=== PATIENT | male | born 1945 | race Caucasian/White ===

== ENCOUNTER → 2023-04-29 13:01 | Outpatient (REF) | payer OTHER, SELFPAY | LOC: MRI 13:01 | PROVIDERS: ATTENDING PHYSICIAN Psychiatry & Neurology Neurology; FAMILY PHYSICIAN Family Medicine; REFERRING PHYSICIAN Radiology Diagnostic Radiology | DX: R51.9 Headache, unspecified (principal); Z95.0 Presence of cardiac pacemaker | CPT/HCPCS: 70553; 71046 ==